=== PATIENT | male | born 1965 | race Two or more races ===

== ENCOUNTER 2016-09-13 18:51 | Emergency (ER) | payer OTHER ==
[~2016-09-13] VITALS: Ht 170.2 cm; Wt 81.6 kg
[2016-09-13 18:55] VITALS: BP 143/80
--- NOTE | 2016-09-13 19:51 | NUR ---
PT TAKEN TO BED 6
--- NOTE | 2016-09-13 19:57 | NUR ---
Dr. Vogt evaluating patient at bedside.
[2016-09-13] MEDS ORDERED: HYDROcodone/APAP 5/325 MG 1 TAB TAB PO ONE (20:05)
[2016-09-13] MEDS ORDERED: FLUCONAZOLE 100 MG TAB PO ONE (20:05)
--- NOTE | 2016-09-13 20:07 | NUR ---
PT BIB SELF TO ED WITH C/O EVALUATION OF MOUTH PAIN X2 DAYS. HX DM, HTN.. DENIES N/V/D; SKIN IS PINK/WARM/DRY; AAOX4 WITH EVEN AND STEADY GAIT; LUNGS CLEAR BL; HR EVEN AND REGULAR; PT DENIES ANY FEVER, CP, SOB, OR COUGH AT THIS TIME; PATIENT STATES PAIN OF 8/10 AT THIS TIME; VSS; PATIENT POSITIONED FOR COMFORT; HOB ELEVATED; BEDRAILS UP X2; BED DOWN. ER MD MADE AWARE OF PT STATUS.
[2016-09-13] MEDS ORDERED: FLUCONAZOLE 100 MG TAB ONE (20:45)
[2016-09-13 21:02] VITALS: BP 131/77
--- NOTE | 2016-09-13 21:02 | NUR ---
Patient discharged with v/s stable. Written and verbal after care instructions given and explained. Patient alert, oriented and verbalized understanding of instructions. Ambulatory with steady gait. All questions addressed prior to discharge. ID band removed. Patient advised to follow up with PMD. Rx of FLUCONAZOLE AND NYSTATIN given. Patient educated on indication of medication including possible reaction and side effects. Opportunity to ask questions provided and answered.
== END 2016-09-13 21:02 | disposition home or self-care (01) ==
LOC: MED 19:42
DX: B37.9 Candidiasis, unspecified (principal); R03.0 Elevated blood-pressure reading, without diagnosis of hypertension; E11.9 Type 2 diabetes mellitus without complications; Z88.5 Allergy status to narcotic agent